=== PATIENT | female | born 1970 | race Caucasian/White ===

== ENCOUNTER 2021-07-18 08:43 | Emergency (ER) | payer OTHER ==
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
[2021-07-18] MEDS ORDERED: IBUPROFEN 400 MG TAB ONE (09:23)
--- NOTE | 2021-07-18 10:17 | RAD REPORT ---
EXAM DESCRIPTION: RAD - Foot Right 3 View - 07/18/2021 10:02 am CLINICAL HISTORY: PAIN COMPARISON: No comparisons FINDINGS: Fifth proximal phalanx fracture is suspected at the interphalangeal joint with intra-artic ular extension. Alignment is near anatomic. Calcaneal spurring. Interphalangeal joint space narrowing present. IMPRESSION: Probable acute fracture at the fifth proximal phalanx. Correlate with site of pain.
--- NOTE | 2021-07-18 10:28 | ER ---
Nurse's Notes [facility] Name: Tessy Yadav Age: 51 yrs Sex: Female : 1970 Arrival Date: 07/18/2021 Time: 08:50 Bed 10 Private MD: Diagnosis: Contusion of great toe without damage to nail Presentation: 07/18 09:01 Chief complaint: Patient states: Closed her foot in the recliner. Complaining of right ww big toe pain that started this morning. Coronavirus screen: Vaccine status: Patient reports being unvaccinated. Client denies travel out of the [place] in the last 14 days. Ebola Screen: Patient negative for fever greater than or equal to 101.5 degrees Fahrenheit, and additional compatible Ebola Virus Disease symptoms Patient denies exposure to infectious person. Patient denies travel to an Ebola-affected area in the 21 days before illness onset. Initial Sepsis Screen: Does the patient meet any 2 criteria? No. Patient's initial sepsis screen is negative. Does the patient have a suspected source of infection? No. Patient's initial sepsis screen is negative. Risk Assessment: Do you want to hurt yourself or someone else? Patient reports no desire to harm self or others. Onset of symptoms was July 18, 2021. 09:01 Method Of Arrival: Ambulatory ww 09:01 Acuity: ALEXEI 4 ww Triage Assessment: 09:02 General: Appears in no apparent distress. Behavior is calm, cooperative, appropriate ww for age. Pain: Complains of pain in plantar aspect of right first toe, right first toe and Right first toenail. EENT: No deficits noted. No signs and/or symptoms were reported regarding the EENT system. Neuro: Level of Consciousness is awake, alert, obeys commands, Oriented to person, place, time, situation. Cardiovascular: No deficits noted. Capillary refill < 3 seconds Patient's skin is warm and dry. Respiratory: No deficits noted. Airway is patent Respiratory effort is even, unlabored, Respiratory pattern is regular, symmetrical. GI: No deficits noted. No signs and/or symptoms were reported involving the gastrointestinal system. : No deficits noted. No signs and/or symptoms were reported regarding the genitourinary system. Derm: No deficits noted. No signs and/or symptoms reported regarding the dermatologic system. Skin is intact, is healthy with good turgor. 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 - Social history:: Smoking status: Patient denies any tobacco usage or history of. Screenin:04 Abuse screen: Denies threats or abuse. Denies injuries from another. Nutritional ww screening: No deficits noted. Tuberculosis screening: No symptoms or risk factors identified. Fall Risk None identified. Vital Signs: 09: BP 112 / 75; Pulse 94; Resp 18; Temp 97.6; Pulse Ox 100% on R/A; Weight 74.84 kg; ww Height 5 ft. 7 in. (170.18 cm); Pain 02/07; 09:01 Body Mass Index 25.84 (74.84 kg, 170.18 cm) ww ED Course: 08:50 Patient arrived in ED. ja2 09:02 Triage completed. ww 09:02 Arm band placed on right wrist. ww 09:06 Kanwal Dyson, RN is Primary Nurse. 5 09:11 Jacob Rosales PA is PHCP. jr8 09:11 Jey House MD is Attending Physician. jr8 10:02 Foot Right 3 View XRAY In Process Unspecified. EDMS Administered Medications: 09:25 Drug: Ibuprofen 800 mg Route: PO; ww Outcome: 10:28 Discharge ordered by . jr8 10:34 Patient left the ED. [facility] Signatures: Dispatcher [employer] EDMS Jacob Rosales PA PA jrKanwal Bledsoe ja Kanwal Dyson, RN RN [facility] Peyton Palomino RN RN ww
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
[2021-07-18 10:44] VITALS: BP 112/75; TEMP 97.6; O2SAT 100
== END 2021-07-18 10:34 | disposition home or self-care (01) ==
LOC: ER 08:43
DX: S90.111A Contusion of right great toe without damage to nail, initial encounter (principal); Z88.5 Allergy status to narcotic agent
CPT/HCPCS: 99283